=== PATIENT | female | born 1945 | race Caucasian/White ===

== ENCOUNTER 2021-04-07 12:27 | Emergency (ER) | payer OTHER, MEDICARE ==
[2021-04-07] MEDS ORDERED: Cyclobenzaprine 10 MG TAB ONE (13:16)
== END 2021-04-07 16:05 | disposition home or self-care (01) ==
LOC: CSHERS 12:27
DX: S32.020A Wedge compression fracture of second lumbar vertebra, initial encounter for closed fracture (principal); E03.9 Hypothyroidism, unspecified; K21.9 Gastro-esophageal reflux disease without esophagitis; G47.30 Sleep apnea, unspecified; F17.210 Nicotine dependence, cigarettes, uncomplicated; W01.198A Fall on same level from slipping, tripping and stumbling with subsequent striking against other object, initial encounter; Y92.520 Airport as the place of occurrence of the external cause
CPT/HCPCS: 72131

== ENCOUNTER 2021-07-07 12:28 | Outpatient (CLI) | payer MEDICARE, OTHER | END 2021-07-07 12:29 | disposition home or self-care (01) | LOC: CSHCT 12:28 | PROVIDERS: ATTEND Family Medicine | DX: Z12.2 Encounter for screening for malignant neoplasm of respiratory organs (principal); F17.210 Nicotine dependence, cigarettes, uncomplicated | CPT/HCPCS: 71271 ==

== ENCOUNTER 2024-08-03 18:56 | Emergency (ER) | payer MEDICARE, OTHER ==
[2024-08-03] MEDS ORDERED: Acetaminophen 500 MG TAB ONE (20:34)
== END 2024-08-03 22:13 | disposition home or self-care (01) ==
LOC: CSHERS 18:56
DX: S00.81XA Abrasion of other part of head, initial encounter (principal); S00.31XA Abrasion of nose, initial encounter; S40.812A Abrasion of left upper arm, initial encounter; S40.811A Abrasion of right upper arm, initial encounter; I10 Essential (primary) hypertension; E03.9 Hypothyroidism, unspecified; K21.9 Gastro-esophageal reflux disease without esophagitis; Z79.899 Other long term (current) drug therapy; Z79.890 Hormone replacement therapy; W22.8XXA Striking against or struck by other objects, initial encounter
CPT/HCPCS: 70450; 70486